=== PATIENT | female | born 1965 | race Caucasian/White ===

== ENCOUNTER → 2017-02-18 | Outpatient (CLI) | payer OTHER ==
[~2017-02-18] MED LIST: CEPHALEXIN500 M1 PO; DEXILANT60 MG PO; KETAMINE HCL; OMEGA-3 FISH1200 MG PO; PRINIVIL20 MG PO; RHINOCORT0.032 MG/1 NS; ZOCOR 40MG40 MG PO; ZYRTEC 10MG10 MG PO
== END ==
LOC: MC.RAD 07:40
DX: Z12.31 Encounter for screening mammogram for malignant neoplasm of breast (principal)

== ENCOUNTER → 2018-03-15 | Outpatient (CLI) | payer OTHER | LOC: MC.RAD 09:28 | DX: Z12.31 Encounter for screening mammogram for malignant neoplasm of breast (principal) ==

== ENCOUNTER → 2018-11-22 | Outpatient (CLI) | payer OTHER | LOC: COL.RAD 08:07 | DX: R14.0 Abdominal distension (gaseous) (principal) | CPT/HCPCS: A9541 ==

== ENCOUNTER → 2019-04-05 | Outpatient (CLI) | payer OTHER | LOC: MC.RAD 09:53 | DX: Z12.31 Encounter for screening mammogram for malignant neoplasm of breast (principal) ==

== ENCOUNTER → 2020-04-12 | Outpatient (CLI) | payer OTHER | LOC: MC.RAD 08:12 | DX: Z12.31 Encounter for screening mammogram for malignant neoplasm of breast (principal) ==

== ENCOUNTER → 2021-05-15 | Outpatient (CLI) | payer OTHER | LOC: MC.RAD 10:07 | DX: Z12.31 Encounter for screening mammogram for malignant neoplasm of breast (principal) ==

== ENCOUNTER → 2023-11-09 | Outpatient (CLI) | payer OTHER | LOC: MC.RAD 13:29 | DX: Z12.31 Encounter for screening mammogram for malignant neoplasm of breast (principal) ==